=== PATIENT | male | born 1960 | race Caucasian/White ===

== ENCOUNTER 2020-10-26 01:29 | Emergency (ER) | payer OTHER, SELFPAY ==
[2020-10-26] VITALS (42 sets, daily range): BP systolic 94–132; BP diastolic 63–98; PULSE 46–90; RESP 10–28; TEMP 36.5; O2SAT 92–99
--- NOTE | 2020-10-26 01:30 | RT.EKG_ITS ---
APPROVED REPORT Exam: Resting ECG Reason for Exam: CHEST PAIN Patient Location: E HR:57 bpm ECG Measurements Heart Rate 57 AXIS MD 197 P 48 QRSd 90 QRS 4 QT 414 T 6 QTc 403 Conclusion Sinus bradycardia...rate< 60 Probable left atrial enlargement...P >50mS, <-0.10mV V1 Physician: No stemi
[2020-10-26] MEDS: nitroGLYcerin 0.4 MG TAB SL (01:59)
[2020-10-26] MEDS: Normal Saline 500 ML IV (02:08)
[2020-10-26 02:19] LABS: ALT 24 U/L (16-63); AST 9 U/L (15-37); Albumin 3.4 g/dL (3.4-5.0); Alkaline Phosphatase 70 U/L (46-116); Anion Gap 5.7 mmol/L (3-11); BUN 20 mg/dL (7-18); Bilirubin, Total 0.7 mg/dL (0.2-1.0); CO2 28.3 mmol/L (21.0-32.0); Chloride 106 mmol/L (98-107); Glucose 143 mg/dL (74-106); Lipase 115 U/L (73-393); Potassium 4.3 mmol/L (3.5-5.1); Sodium 140 mmol/L (136-145); Total Protein 6.7 g/dL (6.4-8.2)
--- NOTE | 2020-10-26 02:19 | ED.GENADUL_ITS ---
Discharge Plan Disposition Patient Disposition: HOME Condition: Good Discharge Details Clinical Impression: Chest pain Primary Care Provider: [facility] Provider: Jamie Cabral Home Meds and New Rx's Prescriptions: New azithromycin 250 mg tablet See Rx Instructions .ROUTE .COMPLEX Qty: 6 RF: 0 Continued multivitamin Tablet 1 tab PO DAILY RF: 0 lisinopril 30 mg Tablet 30 mg PO DAILY RF: 0 vitamin E 400 unit Capsule 400 unit PO DAILY RF: 0 Bioflex 327-46-69-40 mg Tablet 1 tab PO DAILY RF: 0 Discharge Instructions Instructions: Chest Pain (ED) Additional Instructions: At this time your work-up shows no evidence of heart attack. Your blood tests show no signs of blood clots in your lung. The x-ray does show mild concern for potential mild pneumonia. This is atypical as you have no fever cough or chills. Please take deep breaths multiple times throughout the day, and watch her symptoms closely. If you do develop fever chills or cough please take the antibiotic azithromycin as prescribed. If you notice any worsening of your symptoms, or any new symptoms such as vomiting, diarrhea, fever, chills, shortness of breath, chest pain, numbness, weakness, or fainting , please return immediately to the emergency department for reevaluation. Please follow up with your primary care provider as soon as possible for reassessment and reevaluation. As always, it was a pleasure participating in your medical care today. Discharge Data Discharge Date/Time-TO BE ENTERED AT DEPARTURE: 10/26/20 05:55 Medical Decision Making 60-year-old male with a past medical history of hypertension, but no other significant medical history presents today for chest pain. Patient still about 45 minutes prior to arrival he had an episode of chest tightness in his central sternal area. He admits to a pleuritic component to the chest pain as well. He denies any tearing or ripping sensation. He denies any arm neck or shoulder pain. He states he is unable to get comfortable in any position. He does admit to a burning feeling as well as well as a lot of belching but otherwise denies any reflux-like symptoms. He denies any history of symptoms like this before. He denies any cough shortness of breath. He and his significant other did recently just drive up from [place] over the last 48 hours, but he denies any calf pain, history of DVT or PE, or history of blood clots. He denies any smoking or regular tobacco use. He did have a melanoma in 2013 that was excised but no other history of cancer otherwise. No other complaints at this time. He denies any exertional activity bring about chest pain or shortness of breath. He denies any cocaine use physical exam demonstrates minimal crackles in the left lower lung field, but otherwise unremarkable physical exam. No calf tenderness, no reproducible chest pain. No pulse asymmetry. Etiology is uncertain differential is broad, ACS is certainly on the differential. PE as well, we will get a D-dimer. Reflux is of concern, but I feel needs to be diagnosis of exclusion in this scenario. We will monitor closely, evaluate for life-threatening etiologies and reassess. EKG shows no significant abnormalities. Sinus rhythm. No STEMI 5:50am Laboratory work-up is returned unremarkable. D-dimer is negative. Vital signs showed no evidence of tachycardia or hypoxemia whatsoever. Electrolytes stable, patient does appear mildly dehydrated. Initial and repeat troponin unremarkable. Initial and repeat EKG are stable with no evidence of STEMI or significant abnormality to suggest ACS. The nitroglycerin gave no improvement of the patient's symptoms, however the GI cocktail did notably improve his symptoms. Chest x-ray shows mild venous congestion and or potential pneumonia. No evidence of [place] hump. Patient did have mild crackles of the left lower lung tompkins. However he has no cough fever or shortness of breath. No indication for immediate treatment at this time. We will give a prescription for azithromycin for home use which I will recommend he take if he develops any of the symptoms concerning for pneumonia. No signs of overt fluid overload at this time. With the patient's chest pain resolved with the GI cocktail, his heart score being in the low risk category, and his initial and delta troponin and EKG both being unremarkable, they do feel the patient stable for discharge with close follow-up on an outpatient basis with his PCP. Discussed red flags which to return. I have extensively reviewed the treatment plan and discharge instructions with the patient and their family. I have addressed all patient concerns at this time. The patient and family was made aware of what symptoms to monitor for that would warrant a return to the emergency department. Discussed the plan with the patient and family, they demonstrate verbal understanding and agreement with our assessment and plan at this time. The documentation in this chart was dictated using [employer] dictation software. Please excuse any dictation errors. FINDINGS: Lungs: Pulmonary vasculature is prominent. Mild bibasilar airspace disease. Pleural spaces: No large pleural effusion. Heart/Mediastinum: Unremarkable. No cardiomegaly. Vasculature: Aorta is tortuous. Bones/joints: Unremarkable. IMPRESSION: Mild venous congestion and or pneumonia. Thank you for allowing us to participate in the care of your patient. Dictated and Authenticated by: Donna Welsh MD 10/26/2020 4:02 AM Eastern Time ([place] & [place]) HPI General Date/Time Provider Initiated Documentation: 10/26/20 01:37 . HPI Narrative: 60-year-old male with a past medical history of hypertension, but no other significant medical history presents today for chest pain. Patient still about 45 minutes prior to arrival he had an episode of chest tightness in his central sternal area that began while he was laying in bed. He admits to a pleuritic component to the chest pain as well. He denies any tearing or ripping sensation. He denies any arm neck or shoulder pain. He states he is unable to get comfortable in any position. He does admit to a burning feeling as well as well as a lot of belching but otherwise denies any reflux-like symptoms. He denies any history of symptoms like this before. He denies any cough shortness of breath. He and his significant other did recently just drive up from [place] over the last 48 hours, but he denies any calf pain, history of DVT or PE, or history of blood clots. He denies any smoking or regular tobacco use. He did have a melanoma in 2013 that was excised but no other history of cancer otherwise. No other complaints at this time. He denies any exertional activity bring about chest pain or shortness of breath. He denies any cocaine use Related Data Home Medications Medication Instructions Recorded Confirmed Bioflex 1 tab PO DAILY 10/26/20 10/26/20 azithromycin See Rx Instructions .ROUTE 10/26/20 .COMPLEX #6 tab lisinopril 30 mg PO DAILY 10/26/20 10/26/20 multivitamin 1 tab PO DAILY 10/26/20 10/26/20 vitamin E 400 unit PO DAILY 10/26/20 10/26/20 Previous Rx's Medication Instructions Recorded azithromycin See Rx Instructions .ROUTE 10/26/20 .COMPLEX #6 tab Allergies Allergy/AdvReac Type Severity Reaction Status Date / Time No Known Allergies Allergy Unverified 10/26/20 01:38 General Stated Complaint: Chest Pain AFTAB: 2 Review of Systems All systems reviewed & are unremarkable except as noted in HPI and below PFSH Social History Smoking/Tobacco Use Status: Never Smoking risk assessment performed?: Yes Alcohol Intake: current Alcohol Intake frequency: holidays/special occasions only Substance use type: does not use Do you feel safe at home: Yes Exam Narrative Exam Narrative: 1.Const: Well-nourished, Well-developed, appearing stated age 2.Eyes: PERRL, no conjunctival injection, and symmetrical lids. 3.ENT: Atraumatic external nose and ears. Moist MM. Neck: Symmetric, trachea midline, No thyromegaly. 4.CVS: +S1/S2, No murmurs or gallops. Peripheral pulses 2+ and equal in all extremities. Brisk capillary refill in all extremities. 5.RESP: Unlabored respiratory effort. Minimal crackles left lower lung field, no wheezes or rhonchi otherwise. 6.GI: Soft, Nontender/Nondistended, No hepatosplenomegaly. No guarding or rebound. 7.MSK: Normocephalic/Atraumatic, Extremities w/o deformity or ttp No cyanosis or clubbing, Normal movement of all extremities. No calf tenderness. No medial thigh tender 8.Skin: Warm, Dry. No rashes or lesions. 9.Neuro: bleach tester II-XII grossly intact. Sensation grossly intact, no focal ne urologic deficits. 10.Psych: (AAO) x3. Appropriate mood and affect Course Vital Signs Vital signs: Vital Signs Temperature 36.5 C 10/26/20 01:33 Pulse 58 L 10/26/20 01:33 Respiratory Rate 22 10/26/20 01:33 Blood Pressure 132/75 10/26/20 01:33 Pulse Oximetry 96 10/26/20 01:33 Temperature 36.5 C 10/26/20 01:33 Temperature Source Skin 10/26/20 01:33 Pulse 58 L 10/26/20 01:33 Respiratory Rate 22 10/26/20 01:40 Respiratory Effort Non-Labored 10/26/20 01:40 Respiratory Depth Normal 10/26/20 01:40 Respiratory Pattern Normal 10/26/20 01:40 Blood Pressure 132/75 10/26/20 01:33 Blood Pressure Position Supine 10/26/20 01:33 Pulse Oximetry 96 10/26/20 01:33 Oxygen Delivery Method Room Air 10/26/20 01:33 Oxygen Flow Rate 0 10/26/20 01:33 Pain Level 6 10/26/20 01:33
[2020-10-26 02:20] LABS: Troponin I < 0.05 ng/mL (<0.06)
[2020-10-26] MEDS: Ondansetron 4 MG/2 ML VIAL IVP (02:21)
[2020-10-26 02:22] LABS: Abs Immature Grans 0.06 10^3/uL (0.0-0.06); Absolute Eosinophil Count 0.25 10^3/uL (0.0-0.7); Absolute Lymphocyte Count 1.75 10^3/uL (1.2-3.4); Absolute Monocyte Count 0.83 10^3/uL (0.1-0.8); Absolute Neutrophil Count 8.51 10^3/uL (1.2-6.7); Basophils % 0.9; Eosinophils % 2.2; HCT 44.9 % (40.0-50.0); HGB 14.9 g/dL (13.5-17.5); Immature Grans % 0.5; Lymphocytes % 15.2; MCH 29.2 pg (27.0-33.0); MCHC 33.2 % (32.0-36.0); MPV 10.7 fL (8.0-11.0); Monocytes % 7.2; Nucleated RBC 0 %; Platelet Count 285 10^3/uL (130-400); RDW 12.4 % (11.8-14.1); RDW-SD 40.1 fL
--- NOTE | 2020-10-26 02:30 | DI.RAD_ITS ---
Exam(s) XR CHEST 2V PA LATERAL EXAM: XR CHEST 2V PA LATERAL CLINICAL HISTORY: central CP, crackles LLL TECHNIQUE: 2D digital imaging was performed. COMPARISON: No exams were available for comparison FINDINGS: MEDIASTINUM: Normal. HEART: Normal. PULMONARY VASCULATURE: Normal. LUNGS: Suboptimally inflated. Mildly increased basilar densities, atelectasis versus infiltrate. PLEURAL SPACE: No pleural effusion or pneumothorax. BONE:Degenerative disc changes. Degenerative changes both shoulders. IMPRESSION: Poor pulmonary inflation. Bibasilar atelectasis versus infiltrates. DATA REPOSITORY: RADIATION DOSE DELIVERED:
[2020-10-26 02:35] LABS: D-Dimer 360 ng/mlFEU (<500)
--- NOTE | 2020-10-26 04:03 | DI.VRAD_ITS ---
PROCEDURE INFORMATION: Exam: XR Chest Exam date and time: 10/26/2020 2:39 AM Age: 60 years old Clinical indication: Other: Central cp, crackles lll TECHNIQUE: Imaging protocol: XR of the chest. Views: 2 views. COMPARISON: No relevant prior studies available. FINDINGS: Lungs: Pulmonary vasculature is prominent. Mild bibasilar airspace disease. Pleural spaces: No large pleural effusion. Heart/Mediastinum: Unremarkable. No cardiomegaly. Vasculature: Aorta is tortuous. Bones/joints: Unremarkable. IMPRESSION: Mild venous congestion and or pneumonia. Dictated and Authenticated by: Donna Welsh MD. Ordering:KRYSTAL Ayala MD
--- NOTE | 2020-10-26 04:30 | RT.EKG_ITS ---
APPROVED REPORT Exam: Resting ECG Reason for Exam: CHEST PAIN Patient Location: E HR:75 bpm ECG Measurements Heart Rate 75 AXIS SC 177 P 59 QRSd 95 QRS -3 QT 370 T 17 QTc 413 Conclusion Sinus rhythm...normal P axis, V-rate 60- 99 Probable left atrial enlargement...P >50mS, <-0.10mV V1 Physician: no stemi
[2020-10-26 05:10] LABS: Troponin I < 0.05 ng/mL (<0.06)
== END 2020-10-26 05:55 | disposition home or self-care (01) ==
PROVIDERS: Emergency Provider Student in an Organized Health Care Education/Training Program
DX: R07.9 Chest pain, unspecified (principal)
CPT/HCPCS: 80053; 83690; 93005; 96361; 96374; 99284; 71046; 84484; 85025; 85379; 93010; J2405